=== PATIENT | female | born 1965 | race African-American/Black ===

== ENCOUNTER 2017-05-21 05:47 | Emergency (ER) | payer SELFPAY ==
[~2017-05-21] VITALS: Ht 162.6 cm; Wt 56.0 kg
[2017-05-21] MEDS ORDERED: TETANUS, DIPHTHERIA, PERTUSSIS VAC/PF 0.5ML (>7YR OLD) IM ONE (09:00)
[2017-05-21 10:02] VITALS: BP 112/60
== END 2017-05-21 10:04 | disposition home or self-care (01) ==
LOC: ER 05:47
PROC: 0HQ1XZZ Repair Face Skin, External Approach (ICD-10-PCS; principal; 2017-05-21)
DX: S01.81XA Laceration without foreign body of other part of head, initial encounter (principal); W25.XXXA Contact with sharp glass, initial encounter; Y93.89 Activity, other specified; Y92.89 Other specified places as the place of occurrence of the external cause
CPT/HCPCS: 12011; 90471; 90715; 99283; Z7610